=== PATIENT | female | born 1950 | race Caucasian/White ===

== ENCOUNTER → 2025-06-05 14:16 | Outpatient (CLI) | payer OTHER, SELFPAY ==
--- NOTE | 2025-06-05 14:19 | DI.ECHO.S_ITS ---
[place] [facility] : : [id number] . : : [place] : : [id number] : : Phone: [phone] Echocardiogram Report + + :Name: RAHAT BARLOW Study Date: 06/05/2025 Height: 67 in : :[facility] ReadingLocation: Weight: 254 lb : : Gender: Female BSA: 2.2 m2 : :: 1950 Age: 74 yrs BP: 172/86 mmHg: :Reason For Study: MODERATE AORTIC STENOSIS : :Ordering Physician: CINDY, : :BLANCA Performed By: Faizan Kurtz : :Referring: BLANCA WHITE : + + Interpretation Summary Likely severe aortic stenosis (4.35m/s, 44.5mmHg, JUAN of 0.7, DVI of 0.27). Normal biventricular size and systolic function. Mild mitral stenosis. At least moderate pulmonary hypertension (likely group 2 in the setting of severely dilated left atrium). Other findings as below. Procedure: A two-dimensional transthoracic echocardiogram with color flow and Doppler was performed. The study quality was technically good. There is no prior echocardiogram noted for this patient. The patient was in normal sinus rhythm during the exam. Left Ventricle: The left ventricle is normal in size. Left ventricular wall thickness is mildly increased. There is no ventricular septal defect visualized. The ejection fraction is estimated to be 60-65%. There are no focal wall motion abnormalities. Diastolic parameters suggest probable normal left ventricular diastolic function and normal filling pressures. Right Ventricle: The right ventricle is normal in size and function. Atria: The left atrium is severely dilated. Right atrial size is normal. There is no Doppler evidence for an interatrial shunt. Mitral Valve: There is moderate mitral annular calcification. The mitral valve leaflets appear mildly thickened. The mitral valve leaflets are mildly calcified. There is mild mitral stenosis. The mitral valve mean gradient is 5.4 mmHg. There is trace mitral regurgitation. Aortic Valve: The aortic valve is severely calcified. There is severe aortic stenosis. The peak aortic velocity is 4.35 m/sec. The aortic valve mean gradient is 44.5 mmHg. The calculated aortic valve area is 0.7 cm2. There is mild aortic regurgitation. Tricuspid Valve: The tricuspid valve leaflets are thin and pliable. There is mild tricuspid regurgitation. The right ventricular systolic pressure is estimated to be at least 54 mmHg based on an estimated right atrial pressure of 3 mm Hg. Pulmonic Valve: The pulmonic valve is not well seen, but is grossly normal. There is no pulmonic valvular regurgitation. Great Vessels: The aortic root is normal size. The dimensions of the ascending aorta are normal. The pulmonary artery is not well visualized, but is probably normal size. The IVC is of normal diameter and collapses greater than 50% with a sniff. This suggests a low right atrial pressure of 3 mm Hg. Pericardium/ Pleura There is no pericardial effusion. There is no pleural effusion. MMode/2D Measurements & Calculations LVIDd: 5.5 cm LVOT diam: 1.8 cm LVIDs: 3.5 cm Ao root diam: 3.0 cm FS: 35.6 % asc Aorta Diam: 3.6 cm EPSS: 0.83 cm IVSd: 1.1 cm LVPWd: 1.2 cm LV dean. diameter/BSA (cm/m^2): 2.5 LV sys. diameter/BSA (cm/m^2): 1.6 LA A2 area: 29.3 cm2 RA long axis: 4.8 cm LA A4 area: 30.9 cm2 RA area: 13.9 cm2 LA length (vol): 6.7 cm RA vol: 33.9 ml LA vol: 115.4 ml RA : 15.1 ml/m2 LA vol index: 51.6 ml/m2 IVC diam: 1.9 cm RVD1 (basal): 3.2 cm RVD2 (mid): 2.6 cm TAPSE: 2.7 cm Doppler Measurements & Calculations Ao V2 max: 435.5 cm/sec LVOT Max Errol: 117.9 cm/sec Ao V2 mean: 310.9 cm/sec LV V1 max P.6 mmHg Ao max P.9 mmHg LV V1 VTI: 31.6 cm Ao mean P.5 mmHg JUAN(I,D): 0.73 cm2 Ao V2 VTI: 116.0 cm JUAN(V,D): 0.72 cm2 sev ratio: 0.27 JUAN indexed to BSA (cm^2/m^2): 0.32 MV E max errol: 173.8 cm/sec TR max errol: 359.0 cm/sec MV A max errol: 93.5 cm/sec TR max P.5 mmHg MV E/A: 1.9 PA V2 max: 120.9 cm/sec Med Peak E' Errol: 4.7 cm/sec PA V2 mean: 85.0 cm/sec E/E' med: 36.6 PA mean P.1 mmHg Lat Peak E' Errol: 6.7 cm/sec PA pr(Accel): 39.6 mmHg E/E' lat: 26.0 E/e' average: 31.3 MV dec time: 0.22 sec MVA(VTI): 1.6 cm2 MV V2 mean: 106.6 cm/sec SV(LVOT): 84.2 ml MV mean P.4 mmHg MV V2 VTI: 54.0 cm Reading Physician:01:21 PM
== END ==
LOC: ECHO 14:18
PROVIDERS: PCP Family Medicine; Referring Provider Internal Medicine Cardiovascular Disease; Visit Provider Internal Medicine Cardiovascular Disease
DX: I08.3 Combined rheumatic disorders of mitral, aortic and tricuspid valves (principal)
CPT/HCPCS: 93306